=== PATIENT | male | born 1950 | race Asian ===

== ENCOUNTER 2018-02-14 16:11 | Outpatient (CLI) | payer BC | END 2018-02-14 22:47 | disposition home or self-care (01) | LOC: LAB 16:11 | DX: L98.9 Disorder of the skin and subcutaneous tissue, unspecified (principal) | CPT/HCPCS: 87070; 87077; 87185; 87186; 87205 ==

== ENCOUNTER 2021-04-14 14:28 | Emergency (ER) | payer OTHER ==
[~2021-04-14] VITALS: Ht 175.3 cm; Wt 88.0 kg
[2021-04-14 14:35] VITALS: TEMP 99.2
[2021-04-14 18:09] VITALS: BP 135/70
== END 2021-04-14 18:11 | disposition home or self-care (01) ==
LOC: ED 14:28
DX: S13.4XXA Sprain of ligaments of cervical spine, initial encounter (principal); V89.2XXA Person injured in unspecified motor-vehicle accident, traffic, initial encounter; Y92.410 Unspecified street and highway as the place of occurrence of the external cause
CPT/HCPCS: 99283

== ENCOUNTER 2021-11-03 18:50 | Emergency (ER) | payer OTHER ==
[~2021-11-03] VITALS: Ht 175.3 cm; Wt 88.5 kg
[2021-11-03 20:40] VITALS: BP 142/81; TEMP 97.9
== END 2021-11-03 20:40 | disposition home or self-care (01) ==
LOC: ED 18:50
DX: S16.1XXA Strain of muscle, fascia and tendon at neck level, initial encounter (principal); S39.012A Strain of muscle, fascia and tendon of lower back, initial encounter; W01.0XXA Fall on same level from slipping, tripping and stumbling without subsequent striking against object, initial encounter; Y92.59 Other trade areas as the place of occurrence of the external cause
CPT/HCPCS: 96372; 99283; J1885

== ENCOUNTER 2022-07-18 09:50 | Day surgery (SDC) | payer OTHER ==
[~2022-07-18] VITALS: Ht 165.1 cm; Wt 72.6 kg
== END 2022-07-18 13:15 ==
LOC: OR 09:50
PROVIDERS: ATTEND Internal Medicine Gastroenterology
PROC: 0DBP8ZZ Excision of Rectum, Via Natural or Artificial Opening Endoscopic (ICD-10-PCS; principal; 2022-07-18)
DX: D12.8 Benign neoplasm of rectum (principal); K63.5 Polyp of colon; K57.30 Diverticulosis of large intestine without perforation or abscess without bleeding; K64.8 Other hemorrhoids; Z80.0 Family history of malignant neoplasm of digestive organs; Z12.11 Encounter for screening for malignant neoplasm of colon
CPT/HCPCS: J2704; J7120

== ENCOUNTER 2023-01-07 09:28 | Outpatient (CLI) | payer OTHER | END 2023-01-07 19:10 | disposition home or self-care (01) | LOC: US 09:28 | PROVIDERS: ATTEND Internal Medicine | DX: M79.604 Pain in right leg (principal); R60.0 Localized edema ==